=== PATIENT | female | born 1980 | race Asian ===

== ENCOUNTER 2022-04-25 09:16 | Outpatient (CLI) | payer OTHER | END 2022-04-25 19:20 | disposition home or self-care (01) | LOC: US 09:16 | PROVIDERS: ATTEND Nurse Practitioner Family | DX: R10.9 Unspecified abdominal pain (principal) ==

== ENCOUNTER 2022-05-06 11:47 | Outpatient (CLI) | payer OTHER | END 2022-05-06 18:54 | disposition home or self-care (01) | LOC: CT 11:47 | PROVIDERS: ATTEND Nurse Practitioner Family | DX: R10.9 Unspecified abdominal pain (principal); R10.2 Pelvic and perineal pain | CPT/HCPCS: Q9963 ==

== ENCOUNTER 2022-11-25 12:20 | Outpatient (CLI) | payer OTHER ==
[2022-11-25 12:45] LABS: PLATELET COUNT 329 K/uL (152-353)
[2022-11-25 12:52] LABS: POTASSIUM 4.6 mmol/L (3.6-5.2)
== END 2022-11-25 19:39 | disposition home or self-care (01) ==
LOC: CT 12:20
PROVIDERS: ATTEND Nurse Practitioner Family
DX: R10.31 Right lower quadrant pain (principal)
CPT/HCPCS: 36415; 80053; 85027; Q9963